=== PATIENT | female | born 1975 | race Caucasian/White ===

== ENCOUNTER 2020-11-02 10:05 | Emergency (ER) | payer OTHER ==
[~2020-11-02] VITALS: Ht 165.1 cm; Wt 92.7 kg
[~2020-11-02 10:05] MED LIST: ESOM20CA PO; RANI75TA89 PO
[2020-11-02 10:25] VITALS: BP 151/82
--- NOTE | 2020-11-02 11:00 | RAD ---
EXAM: XR RIBS 2 VIEWS LT, XR CHEST 2V 11/02/2020 10:28 AM CLINICAL INDICATION: Fall COMPARISON: None TECHNIQUE: PA and lateral views of the chest. AP and oblique views of the left wrist FINDINGS: CHEST: The heart and mediastinum are normal. Lungs are well-expanded and clear. No pleural effusion o r pneumothorax. No acute osseous abnormality. LEFT RIBS: There is no displaced left rib fracture. No pneumothorax or pleural effusion. IMPRESSION: No acute cardiopulmonary abnormality. No left rib fracture. Electronically signed by: Aysha Deal MD (11/02/2020 10:57 AM) [id number]
[2020-11-02] MEDS ORDERED: CYCL5TAB PO (11:26)
--- NOTE | 2020-11-02 11:26 | PHYS DOC ---
Past History Past Surgical History: Other Additional Past Surgical Histo: all teeth removed Alcohol Use: Occasionally Adult General Chief Complaint Chief Complaint: RIB PAIN HPI HPI Patient is a healthy 45-year-old female with no serious comorbid conditions presenting for rib pain. Reports she was ambulating down her trailer stairs when she missed a step and fell forward, reports landing on her anterior chest, no loss of consciousness, did not hit her head. She reports central and right- sided chest pain and voices difficulty with breathing in and out. She took x1 dose of unknown [id number] pain medication without significant relief. She reports she slept poorly as pain increased whenever she rolled over on her sides prompting her to come in this morning for evaluation Review of Systems Review of Systems Fourteen body systems of review of systems have been reviewed. See HPI for pertinent positives and negative responses, other herron all other systems are negative, non-pertinent or non-contributory Allergies Allergies Allergies Coded Allergies Type Severity Reaction Last Updated Verified No Known Drug Allergies 10/30/14 No Physical Exam Physical Exam Constitutional: Well developed, well nourished, no acute distress, non-toxic appearance. HENT: Normocephalic, atraumatic, bilateral external ears normal, oropharynx moist, no oral exudates, nose normal. Eyes: PERRLA, EOMI, conjunctiva normal, no discharge. Neck: Normal range of motion, no tenderness, supple, no stridor. Cardiovascular: Heart rate regular, sinus rhythm, no murmurs rubs or gallops, no flail chest, no palpable or visual abnormalities but there is exquisite tenderness with palpation of right chest wall Lungs & Thorax: Bilateral breath sounds clear to auscultation Abdomen: Bowel sounds normal, soft, no tenderness, no masses, no pulsatile masses. Nonsurgical abdomen, no peritoneal signs Skin: Warm, dry, no erythema, no rash. Back: No tenderness, no CVA tenderness. Extremities: No tenderness, no cyanosis, no clubbing, ROM intact, no edema. Neurologic: Alert and oriented X 3, grossly normal motor & sensory function, no focal deficits noted. Psychologic: Affect normal, judgement normal, mood normal. Current Patient Data Vital Signs Vital Signs Date Time Temp Pulse Resp B/P (MAP) Pulse Ox O2 Delivery O2 Flow Rate FiO2 11/02/20 10:25 80 18 151/82 100 EKG EKG [] Radiology/Procedures Radiology/Procedures EXAM: XR RIBS 2 VIEWS LT, XR CHEST 2V 11/02/2020 10:28 AM CLINICAL INDICATION: Fall COMPARISON: None TECHNIQUE: PA and lateral views of the chest. AP and oblique views of the left wrist FINDINGS: CHEST: The heart and mediastinum are normal. Lungs are well-expanded and clear. No pleural effusion or pneumothorax. No acute osseous abnormality. LEFT RIBS: There is no displaced left rib fracture. No pneumothorax or pleural effusion. IMPRESSION: No acute cardiopulmonary abnormality. No left rib fracture. Electronically signed by: Aysha Deal MD (11/02/2020 10:57 AM) [id number] Heart Score C/O Chest Pain: No Risk Factors: Risk Factors: DM, Current or recent (<one month) smoker, HTN, HLP, family history of CAD, obesity. Risk Scores: Risk Factors: DM, Current or recent (<one month) smoker, HTN, HLP, family history of CAD, obesity. Course & Med Decision Making Course & Med Decision Making ABCs unremarkable. I disclosed entirety of ER findings and discussed most likely diagnosis of chest wall contusion. I stressed need for close outpatient follow- up to review today's ER visit. Strict return precautions were also discussed at length with good understanding by patient. Patient voiced understanding and agreement with the plan. Patient knows to come back for repeat evaluation if concerning signs or symptoms present prior to outpatient follow-up. Hemodynamically stable, ambulatory and well-appearing at time of disposition. Dragon Disclaimer Dragon Disclaimer This electronic medical record was generated, in whole or in part, using a voice recognition dictation system. Departure Departure: Impression: Primary Impression: Chest wall contusion Disposition: HOME / SELF CARE / HOMELESS Condition: STABLE Referrals: PCP,UNKNOWN (PCP) Patient Instructions: Chest Contusion, Chest Wall Pain Additional Instructions: It is likely that you have experienced a contusion to your chest wall that is causing you pain. As discussed, please take ibuprofen and/or Tylenol as needed for pain control. I have also prescribed a short-term prescription of muscle relaxers to assist with muscular chest wall pain. I did disclose this might be an acute presentation of more concerning pathology; however, given your presentation there is no indication for further diagnostic work-up in ER setting. With that said, if any concerning signs or symptoms present prior to outpatient follow-up please do not hesitate to come back for repeat evaluation. It was a pleasure to take care of you and I wish you the best going forward Scripts Cyclobenzaprine Hcl (CYCLOBENZAPRINE HCL) 5 Mg Tablet 1 TAB PO QHS for muscle spasms, #15 TAB Prov: ABDELRAHMAN MENCHACA DO 11/02/20 ABDELRAHMAN MENCHACA DO Nov 02, 2020 11:26
== END 2020-11-02 11:30 | disposition home or self-care (01) ==
LOC: ER 10:05
DX: S20.212A Contusion of left front wall of thorax, initial encounter (principal); X58.XXXA Exposure to other specified factors, initial encounter; Y93.89 Activity, other specified; Y92.89 Other specified places as the place of occurrence of the external cause; Y99.8 Other external cause status
CPT/HCPCS: 71046; 71100; 99284-25

== ENCOUNTER 2021-01-08 12:22 | Emergency (ER) | payer OTHER ==
[~2021-01-08] VITALS: Ht 165.1 cm; Wt 94.0 kg
[~2021-01-08 12:22] MED LIST changes: +CYCL5TAB PO
--- NOTE | 2021-01-08 13:03 | EKG ---
[address] [address] Test Date: 2021-01-08 Test Time: 12:53:19 Pat Name: CELIA FARIAS Department: Room: Gender: F [employer]: UZIEL : 1975 Requested By: GIOVANI VAZQUEZ Order Number: [id number] Reading MD: Gideon Shrestha MD Measurements Intervals [place] Rate: 73 P: 0 OR: 128 QRS: -5 QRSD: 76 T: 22 QT: 384 QTc: 427 Interpretive Statements SINUS RHYTHM Electronically Signed On 01-09-2021 9:04:36 CDT by Gideon Shrestha MD
--- NOTE | 2021-01-08 13:08 | PHYS DOC ---
Past History Past Surgical History: Other Additional Past Surgical Histo: all teeth removed Alcohol Use: Occasionally General Adult EDM: Chief Complaint: DIARRHEA HPI: HPI: Patient is a 45-year-old female presents with 3 episodes of diarrhea since yesterday. Patient states "I was sitting at lunch today and I started feeling dizzy". "I have not had a lot to eat or drink today". Patient denies nausea/vomiting/fever. Denies abdominal pain. Patient has history of anxiety and depression. Review of Systems: Review of Systems: Constitutional: Denies fever or chills Eyes: Denies change in visual acuity HENT: Denies nasal congestion or sore throat Respiratory: Denies cough or shortness of breath Cardiovascular: Denies chest pain or edema GI: Denies abdominal pain, nausea, vomiting. Reports diarrhea : Denies dysuria Musculoskeletal: Denies back pain or joint pain Integument: Denies rash Neurologic: Denies headache, focal weakness or sensory changes Endocrine: Denies polyuria or polydipsia Lymphatic: Denies swollen glands Psychiatric: Reports history of depression or anxiety Allergies: Allergies: Allergies Coded Allergies Type Severity Reaction Last Updated Verified No Known Drug Allergies 10/30/14 No Physical Exam: PE: Constitutional: Well developed, well nourished, no acute distress, non-toxic appearance. [] HENT: Normocephalic, atraumatic, bilateral external ears normal, oropharynx moist, no oral exudates, nose normal. [] Eyes: PERRLA, EOMI, conjunctiva normal, no discharge. [] Neck: Normal range of motion, no tenderness, supple, no stridor. [] Cardiovascular:Heart rate regular rhythm, no murmur [] Lungs & Thorax: Bilateral breath sounds clear to auscultation [] Abdomen: Bowel sounds normal, soft, no tenderness, no masses, no pulsatile masses. [] Skin: Warm, dry, no erythema, no rash. [] Back: No tenderness, no CVA tenderness. [] Extremities: No tenderness, no cyanosis, no clubbing, ROM intact, no edema. [] Neurologic: Alert and oriented X 3, normal motor function, normal sensory function, no focal deficits noted. [] Psychologic: Affect normal, judgement normal, mood normal. [] Current Patient Data: Vital Signs: Vital Signs Date Time Temp Pulse Resp B/P (MAP) Pulse Ox O2 Delivery O2 Flow Rate FiO2 01/08/21 12:22 97.5 72 14 135/87 99 Room Air EKG: EKG: sinus rhythm, HR [address] elevation or depression. read by dr. spring at 1300.[] Radiology/Procedures: Radiology/Procedures: [] Heart Score: C/O Chest Pain: No Risk Factors: Risk Factors: DM, Current or recent (<one month) smoker, HTN, HLP, family history of CAD, obesity. Risk Scores: Score 0 - 3: 2.5% MACE over next 6 weeks - Discharge Home Score 4 - 6: 20.3% MACE over next 6 weeks - Admit for Clinical Observation Score 7 - 10: 72.7% MACE over next 6 weeks - Early Invasive Strategies Course & Med Decision Making: Course & Med Decision Making Pertinent Labs and Imaging studies reviewed. (See chart for details) [] 45-year-old female presents with 3 episodes of diarrhea and dizziness. Patient states she was getting ready to eat lunch when she started feeling dizzy. Patient denies fever, abdominal pain, nausea vomiting. Sinus rhythm, heart rate 73 bpm. BS 117. Discussed results with patient. Advised patient to purchase a probiotic and Imodium at pharmacy. Also advised patient to follow a brat diet till symptoms resolved. Increase fluids. Follow-up with PCP if symptoms do not resolve. Advised patient to return to the emergency room with worsening symptoms. Patient states that she understands discharge instructions. Patient is hem odynamically stable upon disposition. Dragon Disclaimer: Raymond Disclaimer: This electronic medical record was generated, in whole or in part, using a voice recognition dictation system. Departure Departure: Impression: Primary Impression: Diarrhea Qualified Codes: R19.7 - Diarrhea, unspecified Disposition: HOME / SELF CARE / HOMELESS Condition: STABLE Referrals: PCP,UNKNOWN (PCP) Patient Instructions: Diarrhea, [id number], Diet for Diarrhea, Adult Additional Instructions: I would purchase a probiotic and Imodium at pharmacy to help with symptoms. Follow the brat diet until your symptoms resolve. Increase fluids. Follow-up with PCP if symptoms do not resolve. return to the emergency room with worsening symptoms. EMERGENCY DEPARTMENT GENERAL DISCHARGE INSTRUCTIONS Thank you for coming to [facility] (ED) today and trusting us with you care. We trust that you had a positivie experience in our Emergency Department. If you wish to speak to the department management, you may call the director at [phone]. YOUR FOLLOW UP INSTRUCTIONS ARE FOLLOWS: 1. Do you have a private Doctor? If you do not have a private doctor, please ask for a resource list of physicians or clinics that may be able to assist you with follow up care. 2. The Emergency Physician has interpreted your x-rays. The X-Ray specialist will also review them. If there is a change in the findings, you will be notified in 48 hours when at all possible. 3. A lab test or culture has been done, your results will be reviewed and you will be notified if you need a change in treatment. ADDITIONAL INSTRUCTIONS AND INFORMATION: 1. Your care today has been supervised by a physician who is specially trained in emergency care. Many problems require more than one evaluation for a complete diagnosis and treatment. We recommend that you schedule your follow up appointment as recommended to ensure complete treatment of you illness or injury. If you are unable to obtain follow up care and continue to have a problem, or if your condition worsens, we recommend that you return to the ED. 2. We are not able to safely determine your condition over the phone nor are we able to give sound medical advice over the phone. For these safety reasons, if you call for medical advice we will ask you to come to the ED for further evaluation. 3. If you have any questions regarding these discharge instructions please call the ED at [phone]. SAFETY INFORMATION: In the interest of safety, wellness, and injury prevention; we encourage you to wear your sealbelt, if you smoke; quite smoking, and we encourage family to use a protective helmet for bicycling and other sporting events that present an increased risk for head injury. IF YOUR SYMPTOMS WORSEN OR NEW SYMPTOMS DEVELOP, OR YOU HAVE CONCERNS ABOUT YOUR CONDITION; OR IF YOUR CONDITION WORSENS WHILE YOU ARE WAITING FOR YOUR FOLLOW UP APPOINTMENT; EITHER CONTACT YOUR PRIMARY CARE DOCTOR, THE PHYSICIAN WHOSE NAME AND NUMBER YOU WERE GIVEN, OR RETURN TO THE ED IMMEDIATELY. GIOVANI VAZQUEZ APRN Jan 08, 2021 13:08
[2021-01-08 13:12] VITALS: BP 131/84
== END 2021-01-08 13:12 | disposition home or self-care (01) ==
LOC: ER 12:22
DX: R19.7 Diarrhea, unspecified (principal)
CPT/HCPCS: 82947; 93005; 99283-25